=== PATIENT | female | born 1950 | race Asian ===

== ENCOUNTER 2018-03-29 11:40 | Emergency (ER) | payer MEDICARE, OTHER ==
[~2018-03-29] VITALS: Ht 165.1 cm; Wt 56.7 kg
--- NOTE | 2018-03-29 12:15 | Emergency Room Report ---
History of Present Illness General Chief Complaint: Head Injury Source: Family Member Present Illness HPI Patient 67-year-old female who presented after fall. The patient reports having no loss of consciousness. She reports having a mild headache. She denies any neck pain. She denies any pain to her leg. Had fall from stair. She did not take any blood thinners. Allergies: Coded Allergies: No Known Allergies (Unverified , 03/29/18) Patient History Last Menstrual Period: na Reviewed Nursing Documentation: PMH: Agreed; PSxH: Agreed Nursing Documentation-PMH Past Medical History: No History, Except For History Of Psychiatric Problem: Yes - depression Review of Systems All Other Systems: negative except mentioned in HPI Physical Exam Vital Signs Date Time Temp Pulse Resp B/P (MAP) Pulse Ox O2 Delivery O2 Flow Rate FiO2 03/29/18 11:41 98.1 63 18 137/68 98 Room Air Sp02 EP Interpretation: reviewed, normal General Appearance: normal inspection, alert, no apparent distress, GCS 15 Head: normocephalic, atraumatic Eyes: normal eye exam, PERRL, EOMI, lids + conjunctiva normal, no hyphema, no racoon eyes ENT: normal ENT inspection, TMs + canals normal, oropharynx normal, no ordaz signs Neck: trach midline, no bony tend, full range of motion without pain Respiratory: effort normal, no retractions, clear to auscultation, chest symmetrical, palpation of chest normal, speaking in full sentences Cardiovascular: regular rate, rhythm, no JVD Cardiovascular #2: 2+ radial (R), 2+ radial (L), 2+ dorsalis pedis (R), 2+ dorsalis pedis (L) Gastrointestinal: normal inspection, non-tender, non-distended, no rebound/ guarding, normal bowel sounds Genitourinary: normal inspection Musculoskeletal: normal ROM, non-tender, back normal Skin: normal palpation, other - laceration to left side of face above eyebrow Lymphatic: normal inspection Neurologic: oriented x3, sensory intact, motor strength/tone normal, normal speech Psychiatric: normal inspection, memory normal, mood normal, no suicidal/ homicidal ideation Procedures Laceration/Wound Repair Laceration/Wound Repair : Consent: Verbal Wound Location: face Wound's Depth, Shape: superficial Wound Length (cm): 1 Wound Explored: clean Irrigated w/ Saline (ccs): 10 Wound Repaired With: Dermabond Patient Tolerated: Well Complications: None Medical Decision Making Diagnostic Impression: Primary Impression: Facial laceration Additional Impression: Head injury ER Course The patient presented for laceration after fall. Differential diagnosis included wasn't limited to head injury, fracture, syncope among others. The CT imaging of the head was ordered due to patient's had head injury. Patient was noted to have the soft tissue swelling without evident fracture. The laceration was irrigated and closed with Dermabond. Patient was advised wound care. The patient's leg appears to have no evidence of acute fracture. The patient is advised to return if she began having increased headache persistent vomiting or other concerns. Last Vital Signs Date Time Temp Pulse Resp B/P (MAP) Pulse Ox O2 Delivery O2 Flow Rate FiO2 03/29/18 11:41 98.1 63 18 137/68 98 Room Air Status: improved Disposition: HOME, SELF-CARE Condition: Stable Scripts Acetaminophen* (ACETAMINOPHEN EXTRA STRENGTH*) 500 Mg Tablet 500 MG ORAL Q8H PRN for Fever/Headache/Mild Pain, #30 TAB Prov: Abiodun Gill MD 03/29/18 Abiodun Gill MD Mar 29, 2018 12:14
[2018-03-29] MEDS ORDERED: ACETAMINOPHEN500 M3 ORAL (12:55)
[2018-03-29] MEDS ORDERED: Bacitracin Oint UD TOPIC ONE ×2 (13:04→13:15)
[2018-03-29 13:09] VITALS: BP 132/70
--- NOTE | 2018-03-29 13:14 | Diagnostic Imaging Report ---
EXAM: CT Head Without Intravenous Contrast CLINICAL HISTORY: PAIN TECHNIQUE: Axial computed tomography images of the head/brain without intravenous contrast. CTDI is 70.53 mGy and DLP is 1351 mGy-cm. One or more of the following dose reduction techniques were used: automated exposure control, adjustment of the mA and/or kV according to patient size, use of iterative reconstruction technique. COMPARISON: No relevant prior studies available. FINDINGS: Brain: Unremarkable. No evidence of acute intracranial hemorrhage. No significant white matter disease. No edema. No mass effect or midline shift. Ventricles: Unremarkable. No ventriculomegaly. Bones/joints: Unremarkable. No depressed skull fracture. Soft tissues: Left periorbital soft tissue swelling. Sinuses: Unremarkable as visualized. No acute sinusitis. Mastoid air cells: Unremarkable as visualized. No mastoid effusion. IMPRESSION: 1. No acute intracranial findings. 2. Left periorbital soft tissue swelling.
== END 2018-03-29 13:09 | disposition home or self-care (01) ==
LOC: EMR 13:00
DX: S01.81XA Laceration without foreign body of other part of head, initial encounter (principal); W19.XXXA Unspecified fall, initial encounter; Y92.9 Unspecified place or not applicable; F32.9 Major depressive disorder, single episode, unspecified; R51 Headache
CPT/HCPCS: 70450; 99284